=== PATIENT | female | born 2000 | race Caucasian/White ===

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

== ENCOUNTER 2018-07-19 13:07 | Inpatient (IN) | payer OTHER ==
[2018-07-19] MEDS ORDERED: METHYLERGONOVINE 0.2 MG INJ IM ×2 (13:30→21:00)
[2018-07-19] MEDS ORDERED: CARBOPROST 250 MCG INJ IM ×2 (13:30→21:00)
[2018-07-19] MEDS ORDERED: MISOPROSTOL 200 MCG TAB PR ×2 (13:30→21:00)
[2018-07-19] MEDS ORDERED: CEFAZOLIN 2 GM/50 ML (PMX) 50 ML IVPB (13:30)
[2018-07-19 14:11] LABS: ADD MAN DIFF? NO
[2018-07-19 14:15] LABS: BASOPHILS % 0.2 % (0.0-2.0); EOSINOPHILS # 0.1 10^3/ul (0.0-0.5); EOSINOPHILS % 1.3 % (0.0-7.0); HEMOGLOBIN 8.8 g/dl (12.0-16.0); LYMPHOCYTES % 24.2 % (18.0-55.0); MEAN CORPUSCULAR HEMOGLOBIN 22.8 pg (29.0-33.0); MEAN CORPUSCULAR HGB CONC 30.3 g/dl (32.0-37.0); MEAN CORPUSCULAR VOLUME 75.1 fl (72.0-104.0); MEAN PLATELET VOLUME 10.4 fl (7.4-10.4); MONOCYTE # 0.6 10^3/ul (0.3-0.9); MONOCYTES % 7.3 % (0.0-13.0); NEUTROPHIL # 5.6 10^3/ul (1.6-7.5); NEUTROPHILS % 66.5 % (30.0-74.0); PLATELET COUNT 301 10^3/UL (140-415); RED BLOOD COUNT 3.86 10^6/ul (4.20-5.40); RED CELL DISTRIBUTION WIDTH 15.8 % (11.5-14.5)
[2018-07-19 14:15] LABS: WHITE BLOOD COUNT 8.4 10^3/ul (4.8-10.8)
[2018-07-19 14:35] LABS: INR 0.86; PARTIAL THROMBOPLASTIN TIME 23.5 Sec (23.0-35.0); PROTIME 11.8 Sec (11.9-14.9); PT RATIO 0.9
[2018-07-19] MEDS: LACTATED RINGER'S 1,000 ML IV ×2 (15:00→21:42)
[2018-07-19] MEDS: CLINDAMYCIN 900 MG/D5W (PMX) 50 ML IVPB ×2 (15:45→22:55)
[2018-07-19 15:46] LABS: RAPID PLASMA REAGIN NONREACTIVE (NR)
[2018-07-19] MEDS ORDERED: OXYTOCIN 10 UNIT INJ (15:48)
[2018-07-19] MEDS ORDERED: ONDANSETRON 4 MG INJ (15:48)
[2018-07-19] MEDS ORDERED: morphine SULFATE/PF (10 MG/10 ML) INJ (15:48)
[2018-07-19] MEDS ORDERED: PHENYLephrine 10 MG INJ (16:39)
[2018-07-19] MEDS: OXYTOCIN 30 UNITS/LR 500 ML IV (17:22)
[2018-07-19] MEDS ORDERED: NALOXONE (0.4 MG/ML) INJ IV (17:30)
[2018-07-19] MEDS ORDERED: ONDANSETRON 4 MG INJ IV (17:30)
[2018-07-19] MEDS ORDERED: morphine 2 MG INJ IV (17:30)
[2018-07-19] MEDS: ACETAMINOPHEN 500 MG TAB PO (17:32)
[2018-07-19] MEDS: KETOROLAC 30 MG INJ IV (17:32)
[2018-07-19] MEDS: GENTAMICIN 80 MG/NS (PMX) 50 ML IVPB ×3 (18:00→21:42)
[2018-07-19] MEDS: AZITHROMYCIN 500MG/NS (PMX) 250 ML IV (18:18)
[2018-07-19] MEDS ORDERED: NA PHOSPHATE/BIPHOS 133 ML ENEMA PR (21:00)
[2018-07-19] MEDS ORDERED: OXYTOCIN 30 UNITS/LR 500 ML IV (21:00)
[2018-07-19] MEDS ORDERED: HYDROCODONE/APAP (5/325) TAB PO (21:00)
[2018-07-19] MEDS: SENNA/DOCUSATE NA (8.6MG/50MG) TAB PO (21:42)
[2018-07-19] MEDS: CLINDAMYCIN 300 MG CAP PO (23:34)
[2018-07-19] MEDS: DIPHENHYDRAMINE 50 MG INJ IV (23:34)
[2018-07-20] MEDS: GENTAMICIN 80 MG/NS (PMX) 50 ML IVPB ×3 (04:29→22:12)
[2018-07-20] MEDS: CLINDAMYCIN 900 MG/D5W (PMX) 50 ML IVPB (06:03)
[2018-07-20] MEDS: CLINDAMYCIN 300 MG CAP PO ×3 (06:03→18:24)
[2018-07-20] MEDS: SENNA/DOCUSATE NA (8.6MG/50MG) TAB PO ×2 (09:31→22:13)
[2018-07-20] MEDS: LACTATED RINGER'S 1,000 ML IV (09:31)
[2018-07-20] MEDS: KETOROLAC 30 MG INJ IV (10:58)
[2018-07-20] MEDS: IBUPROFEN 800 MG TAB PO (22:13)
[2018-07-20] MEDS: BISACODYL 10 MG SUPP PR (22:13)
[2018-07-21] MEDS: OXYCODONE/ACETAMINOPHEN (5/325) TAB PO (00:50)
[2018-07-21] MEDS: CLINDAMYCIN 300 MG CAP PO ×3 (00:50→12:33)
[2018-07-21] MEDS: IBUPROFEN 800 MG TAB PO ×3 (05:30→22:12)
[2018-07-21] MEDS: GENTAMICIN 80 MG/NS (PMX) 50 ML IVPB (05:30)
[2018-07-21 08:19] LABS: WHITE BLOOD COUNT 8.3 10^3/ul (4.8-10.8)
[2018-07-21 08:19] LABS: ADD MAN DIFF? NO; BASOPHILS % 0.1 % (0.0-2.0); EOSINOPHILS # 0.2 10^3/ul (0.0-0.5); EOSINOPHILS % 1.9 % (0.0-7.0); HEMATOCRIT 24.5 % (37.0-47.0); HEMOGLOBIN 7.2 g/dl (12.0-16.0); LYMPHOCYTES # 2.2 10^3/ul (0.8-2.9); LYMPHOCYTES % 26.7 % (18.0-55.0); MEAN CORPUSCULAR HEMOGLOBIN 22.4 pg (29.0-33.0); MEAN CORPUSCULAR HGB CONC 29.4 g/dl (32.0-37.0); MEAN CORPUSCULAR VOLUME 76.1 fl (72.0-104.0); MEAN PLATELET VOLUME 10.3 fl (7.4-10.4); MONOCYTE # 0.9 10^3/ul (0.3-0.9); MONOCYTES % 10.3 % (0.0-13.0); NEUTROPHILS % 60.6 % (30.0-74.0); PLATELET COUNT 234 10^3/UL (140-415); RED BLOOD COUNT 3.22 10^6/ul (4.20-5.40); RED CELL DISTRIBUTION WIDTH 16.4 % (11.5-14.5)
[2018-07-21] MEDS: SENNA/DOCUSATE NA (8.6MG/50MG) TAB PO ×2 (09:30→22:12)
[2018-07-21] MEDS: DIPHTH/TET/ACEL PERTUSS (ADULT) 0.5 ML VIAL IM* (11:48)
[2018-07-21] MEDS: MEASLES,MUMPS,RUBELLA VACCINE INJ SC* (11:48)
[2018-07-21] MEDS ORDERED: ACETAMINOPHEN 325 MG TAB PO (12:00)
[2018-07-21] MEDS: LANOLIN HPA 1 PKT TOP (16:29)
[2018-07-22] MEDS: IBUPROFEN 800 MG TAB PO ×2 (06:26→14:00)
[2018-07-22] MEDS: SENNA/DOCUSATE NA (8.6MG/50MG) TAB PO (09:16)
[2018-07-22] MEDS: OXYCODONE/ACETAMINOPHEN (5/325) TAB PO (12:50)
== END 2018-07-22 16:28 | disposition home or self-care (01) | DRG 788 ==
LOC: L-D 13:07 → PP1 20:03
PROVIDERS: Obstetrics & Gynecology
PROC: 10D00Z1 Extraction of Products of Conception, Low, Open Approach (ICD-10-PCS; principal; 2018-07-19)
DX: O34.211 Maternal care for low transverse scar from previous cesarean delivery (principal); O99.824 Streptococcus B carrier state complicating childbirth; Z3A.39 39 weeks gestation of pregnancy; Z37.0 Single live birth
CPT/HCPCS: 85025; 85610; 85730; 86592; 86850; 86900; 86901; 99464

== ENCOUNTER 2018-07-29 23:53 | Emergency (ER) | payer OTHER | END 2018-07-30 01:43 | disposition home or self-care (01) | LOC: FTE 23:53 | DX: L53.9 Erythematous condition, unspecified (principal) | CPT/HCPCS: 99283; Z7502 ==

== ENCOUNTER 2018-08-01 13:51 | Emergency (ER) | payer OTHER ==
[2018-08-01] MEDS ORDERED: CEFTRIAXONE 1 GM INJ IM (15:00)
[2018-08-01 15:23] LABS: WHITE BLOOD COUNT 10.7 10^3/ul (4.8-10.8)
[2018-08-01 15:23] LABS: ADD MAN DIFF? NO; BASOPHILS % 0.3 % (0.0-2.0); EOSINOPHILS % 0.3 % (0.0-7.0); HEMATOCRIT 32.6 % (37.0-47.0); HEMOGLOBIN 9.8 g/dl (12.0-16.0); LYMPHOCYTES # 0.8 10^3/ul (0.8-2.9); LYMPHOCYTES % 7.9 % (18.0-55.0); MEAN CORPUSCULAR HEMOGLOBIN 22.3 pg (29.0-33.0); MEAN CORPUSCULAR HGB CONC 30.1 g/dl (32.0-37.0); MEAN CORPUSCULAR VOLUME 74.1 fl (72.0-104.0); MEAN PLATELET VOLUME 10.1 fl (7.4-10.4); MONOCYTE # 0.4 10^3/ul (0.3-0.9); MONOCYTES % 3.9 % (0.0-13.0); NEUTROPHIL # 9.3 10^3/ul (1.6-7.5); NEUTROPHILS % 87.2 % (30.0-74.0); PLATELET COUNT 416 10^3/UL (140-415); RED CELL DISTRIBUTION WIDTH 16.8 % (11.5-14.5)
[2018-08-01] MEDS: ACETAMINOPHEN 500 MG TAB PO (15:26)
[2018-08-01] MEDS: SOD CHLORIDE 0.9% 1,000 ML IV (15:26)
[2018-08-01] MEDS: CEFTRIAXONE 1 GM/50 ML (PMX) 50 ML IVPB (15:26)
[2018-08-01 15:32] LABS: ADD UMIC YES; UR ASCORBIC ACID NEGATIVE (NEGATIVE); UR BACTERIA FEW /HPF (NONE SEEN); UR BILIRUBIN (Dip) NEGATIVE (NEGATIVE); UR BLOOD (Dip) 1+ mg/dL (NEGATIVE); UR CLARITY CLEAR (CLEAR); UR COLOR YELLOW (YELLOW); UR GLUCOSE (Dip) NEGATIVE (NEGATIVE); UR KETONES (Dip) NEGATIVE (NEGATIVE); UR LEUKOCYTE ESTERASE (Dip) NEGATIVE Leu/ul (NEGATIVE); UR NITRITE (Dip) NEGATIVE (NEGATIVE); UR RBC 0 /HPF (0-5); UR SPECIFIC GRAVITY (Dip) 1.012 (1.003-1.030); UR SQUAMOUS EPITHELIAL CELL FEW /HPF (FEW); UR TOTAL PROTEIN (Dip) NEGATIVE (NEGATIVE); UR UROBILINOGEN (Dip) NEGATIVE (NEGATIVE); UR WBC 2 /HPF (0-5)
[2018-08-01 15:41] LABS: ALANINE AMINOTRANSFERASE 33 IU/L (13-69); ALBUMIN 4.1 g/dl (3.3-4.9); ALBUMIN/GLOBULIN RATIO 1.13; ALKALINE PHOSPHATASE 130 IU/L (42-121); ANION GAP 13 (5-13); ASPARTATE AMINO TRANSFERASE 25 IU/L (15-46); BILIRUBIN,INDIRECT 0.5 mg/dl (0-1.1); BILIRUBIN,TOTAL 0.5 mg/dl (0.2-1.3); BLOOD UREA NITROGEN 8 mg/dl (7-20); CALCIUM 8.6 mg/dl (8.4-10.2); CARBON DIOXIDE 22 mmol/L (21-31); CHLORIDE 106 mmol/L (97-110); CREATININE 0.64 mg/dl (0.44-1.00); Estimated GFR > 60 mL/min (>60); GLUCOSE 92 mg/dl (70-220); SODIUM 141 mmol/L (135-144); TOTAL PROTEIN 7.7 g/dl (6.1-8.1)
[2018-08-01 15:55] LABS: POTASSIUM 3.5 mmol/L (3.5-5.1)
[2018-08-01] MEDS: SOD CHLORIDE 0.9% 100 ML (16:22)
[2018-08-01] MEDS: IOHEXOL 300MG/ML 150 ML BTL (16:22)
== END 2018-08-01 17:48 | disposition home or self-care (01) ==
LOC: FTE 13:51
DX: O75.4 Other complications of obstetric surgery and procedures (principal); Z3A.39 39 weeks gestation of pregnancy
CPT/HCPCS: 36415; 74177; 80053; 81001; 85025; 96361; 96365; 99285-25